=== PATIENT | female | born 1985 | race Caucasian/White ===

== ENCOUNTER 2017-09-26 09:29 | Emergency (ER) | payer SELFPAY ==
[~2017-09-26] VITALS: Ht 170.2 cm; Wt 70.3 kg
[~2017-09-26 09:29] MED LIST: PREN0.01 PO
[2017-09-26 09:34] VITALS: BP 135/71; PULSE 100; RESP 16; TEMP 98.4; O2SAT 100
[2017-09-26] MEDS ORDERED: TRAM50 PO (10:05)
[2017-09-26] MEDS ORDERED: CLIN300C5 PO (10:05)
--- NOTE | 2017-09-26 10:05 | PD ---
HPI Chief Complaint: Skin Problem Time Seen by Provider: 09:40 Travel History International Travel<30 days: No Contact w/Intl Traveler<30days: No Traveled to known affect area: No History of Present Illness HPI This is a 32-year-old female with a abscess to the right groin 3 days. Patient reports she had an area that started out as a small pimple-like lesion and has increased in size, redness and tenderness over several days. Denies fever or chills. Denies vaginal discharge or abdominal pain. Symptom severity is moderate. Aggravated by walking and tight fitting close. Relieved with rest. PFSH Past Medical History Anemia: Yes Diminished Hearing: No Genitourinary: Yes (UTI'S) Tetanus Vaccination: > 5 Years Influenza Vaccination: No ?: Not LMP: 08/31/17 : 3 Para: 1 Miscarriage: 1 : 1 Past Surgical History Genitourinary Surgery: Yes (RENAL SCOPE FOR UTI'S) Social History Alcohol Use: Yes (A FEW BEERS ON WEEKENDS) Tobacco Use: Yes (PPD X13 YEARS) Substance Use: Yes (MARIUJANA) Allergies-Medications (Allergen,Severity, Reaction): Coded Allergies: No Known Allergies (Verified Adverse Reaction, Unknown, 09/26/17) Reported Meds & Prescriptions Reported Meds & Active Scripts Active Reported Vit ( Plus) (Prenat Multivit/[place]/Iron/Folic Ac) Tab 1 Tab PO DAILY Review of Systems Except as stated in HPI: all other systems reviewed are Neg General / Constitutional: No: Fever Physical Exam Narrative GENERAL: Alert and well-appearing 32-year-old female SKIN: Warm and dry. 4X3 centimeter area of induration and erythema with central fluctuance. Small amount of purulent drainage from the center. HEAD: Normocephalic. EYES: No injection or drainage. NECK: Supple CARDIOVASCULAR: Regular rate and rhythm RESPIRATORY: Breath sounds equal bilaterally. No accessory muscle use. GASTROINTESTINAL: Abdomen soft, non-tender, nondistended. Data Data Last Documented VS Vital Signs Date Time Temp Pulse Resp B/P (MAP) Pulse Ox O2 Delivery O2 Flow Rate FiO2 09/26/17 09:44 16 09/26/17 09:34 98.4 100 135/71 (92) 100 MDM Medical Decision Making Medical Screen Exam Complete: Yes Emergency Medical Condition: Yes Differential Diagnosis Abscess, folliculitis, cellulitis Narrative Course 32-year-old female here with abscess to the right groin 3 days. She is nontoxic appearing. Incision and drainage was performed. Procedure was difficult due to patient inability to sit still for fear of procedure. She was offered pain medication and declined. Procedures Procedure Narrative INCISION AND DRAINAGE OF ABSCESS: The area was prepped and was sterilely draped. A subcutaneous wheal of 1 % Xylocaine was used to anesthetize the area properly. A number 11 scalpel was used to make a 0.5 -cm incision across the area of the abscess. The abscess was drained, complex loculations were broken down, and irrigated with normal saline. Sterile dressing applied. Patient advised to have wound rechecked in 2 days by her PCP Diagnosis Primary Impression: Abscess Referrals: Primary Care Physician Additional Instructions: Apply warm compresses to the area or soak in a warm tub several times per day. Antibiotics as prescribed. Pain medication as needed. Follow-up the primary doctor in 2 days for recheck Scripts Tramadol (Ultram) 50 Mg Tab 50 MG PO Q6H Y for PAIN, #12 TAB 0 Refills Prov: Alycia Ng 09/26/17 Clindamycin (Clindamycin) 300 Mg Cap 300 MG PO Q6H for Infection for 10 Days, #40 CAP 0 Refills Prov: Alycia Ng 09/26/17 Disposition: 01 DISCHARGE HOME Condition: Stable Alycia Ng Sep 26, 2017 10:05
== END 2017-09-26 10:29 | disposition home or self-care (01) ==
LOC: PHED 09:29
DX: L02.214 Cutaneous abscess of groin (principal); F17.200 Nicotine dependence, unspecified, uncomplicated; F12.90 Cannabis use, unspecified, uncomplicated
CPT/HCPCS: 10060